=== PATIENT | female | born 1955 | race Caucasian/White ===

== ENCOUNTER → 2017-03-25 | Outpatient (CLI) | payer BC ==
[2017-03-25 11:15] LABS: BUN/CREATININE RATIO 19 (0-10)
[2017-03-25 11:19] LABS: HEMOGLOBIN 13.8 gm/dl (12.3-15.3); RED BLOOD COUNT 4.31 M/UL (4.00-5.10); WHITE BLOOD COUNT 5.1 K/UL (4.5-11.0)
== END ==
LOC: LAB 10:01
PROVIDERS: Nurse Practitioner
DX: M13.80 Other specified arthritis, unspecified site (principal); R53.83 Other fatigue; E78.5 Hyperlipidemia, unspecified
CPT/HCPCS: 36415; 80053; 80061; 84436; 84443; 84480; 85025; 86039; 86140; 86431

== ENCOUNTER → 2022-06-30 | Outpatient (CLI) | payer MEDICARE, OTHER | LOC: EXRD 14:26 | DX: R22.42 Localized swelling, mass and lump, left lower limb (principal); R21 Rash and other nonspecific skin eruption | CPT/HCPCS: 93971 ==